=== PATIENT | male | born 2000 | race Caucasian/White ===

== ENCOUNTER 2020-09-16 23:34 | Emergency (ER) | payer SELFPAY ==
--- NOTE | 2020-09-17 00:25 | ER ---
DATE SEEN: 09/16/2020 CHIEF COMPLAINT: Numbness of the left hand. HISTORY OF PRESENT ILLNESS: This 19-year-old is complaining of numbness of the left hand, especially the pinky and ring finger that started last night when he woke up at around 2100. No weakness. He denies any headaches, neck pain, or any other neurologic symptoms. PAST MEDICAL HISTORY: No active medical problems. SOCIAL HISTORY: Currently unemployed. PHYSICAL EXAMINATION: VITAL SIGNS: Pulse is 114, the rest of the vital signs are normal. MUSCULOSKELETAL: Normal. NEUROLOGIC: Normal with grossly intact cranial nerves and strength in all four extremities. IMPRESSION: Carpal tunnel syndrome. TREATMENT: Nocturnal bracing for 2 weeks. Information provided. Follow up [email or web address] /[id number] ANDRE/NOE
== END 2020-09-17 00:09 | disposition home or self-care (01) ==
LOC: FB.ED 23:34
DX: G56.02 Carpal tunnel syndrome, left upper limb (principal)
CPT/HCPCS: 99283

== ENCOUNTER 2021-01-23 20:43 | Emergency (ER) | payer BC ==
[2021-01-23] MEDS ORDERED: Lidocaine 2% Viscous Solution 15 ML Cup PO ONE (20:52)
--- NOTE | 2021-01-23 21:22 | EDM.PDOC ---
ED HPI GENERAL MEDICAL PROBLEM - General Chief Complaint: General Stated Complaint: MOUTH INFECTION Time Seen by Provider: 01/23/21 21:00 Source of Information: Reports: Patient History Limitations: Reports: No Limitations - History of Present Illness INITIAL COMMENTS - FREE TEXT/NARRATIVE: Dental pain for 1 day getting worse. Pain is 8/10, Left upper jaw area. 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 Left Upper Tooth/Teeth Pain Score (Numeric/FACES): 6 - Related Data Allergies Allergy/AdvReac Type Severity Reaction Status Date / Time No Known Allergies Allergy Verified 09/16/20 23:48 Home Meds: Home Meds Amoxicillin 875 mg PO BID #20 tablet 01/23/21 [Rx] Past Medical History - Past Health History Medical/Surgical History: Denies Medical/Surgical History Social & Family History - Caffeine Use Caffeine Use: Reports: Coffee, Soda - Recreational Drug Use Recreational Drug Use: Yes Drug Use in Last 12 Months: Yes Recreational Drug Type: Reports: Marijuana/Hashish ED ROS GENERAL - Review of Systems Review Of Systems: See Below Constitutional: Reports: No Symptoms HEENT: Reports: Dental Pain Respiratory: Reports: No Symptoms Cardiovascular: Reports: No Symptoms Endocrine: Reports: No Symptoms GI/Abdominal: Reports: No Symptoms : Reports: No Symptoms Musculoskeletal: Reports: No Symptoms Skin: Reports: No Symptoms Neurological: Reports: No Symptoms Psychiatric: Reports: No Symptoms ED EXAM, GENERAL - Physical Exam Exam: See Below Exam Limited By: No Limitations General Appearance: Alert, No Apparent Distress Eye Exam: Bilateral Eye: PERRL Ears: Normal External Exam, Normal Canal Nose: Normal Inspection, Normal Mucosa Throat/Mouth: Normal Inspection, Normal Lips, Inflammation, Other (dental caries) Neck: Normal Inspection, Supple, Non-Tender Respiratory/Chest: No Respiratory Distress, Lungs Clear, Normal Breath Sounds, No Accessory Muscle Use, Chest Non-Tender Cardiovascular: Normal Peripheral Pulses, Regular Rate, Rhythm, No Edema, No Gallop, No JVD, No Murmur GI/Abdominal: Normal Bowel Sounds, Soft, Non-Tender, No Organomegaly Back Exam: Normal Inspection, Full Range of Motion Extremities: Normal Inspection, Normal Range of Motion, Non-Tender Neurological: Alert, Oriented, CN II-XII Intact, Normal Cognition Course - Vital Signs Text/Narrative:: Augmentin 875 mg PO x1 Ibuprofen 800 mg PO x1 Tylenol 1000 mg PO x1 Viscous Lidocaine applied by me Last Recorded V/S: Last Vital Signs Temp 37.3 C 01/23/21 20:53 Pulse 88 01/23/21 20:53 Resp 18 01/23/21 20:53 BP 122/88 01/23/21 20:53 Pulse Ox 99 01/23/21 20:53 - Orders/Labs/Meds Meds: Medications Discontinued Medications Generic Name Dose Route Start Last Admin Trade Name Flor PRN Reason Stop Dose Admin Acetaminophen 1,000 mg 01/23/21 21:24 01/23/21 21:29 Acetaminophen 500 Mg Tab PO 01/23/21 21:25 1,000 mg NOW STA Administration Amoxicillin/Clavulanate Potassium 1 tab 01/23/21 21:24 01/23/21 21:29 Amoxicillin/Clavulanate K 875-125 Mg Tab PO 01/23/21 21:25 1 tab NOW STA Administration Ibuprofen 800 mg 01/23/21 21:24 01/23/21 21:29 Ibuprofen 800 Mg Tab PO 01/23/21 21:25 800 mg NOW STA Administration Lidocaine HCl 15 ml 01/23/21 20:52 01/23/21 21:27 Lidocaine 2% Viscous Solution 15 Ml Cup PO 01/23/21 20:53 15 ml ONETIME ONE Administration Departure - Departure Time of Disposition: 21:25 Disposition: Home, Self-Care 01 Condition: Good Clinical Impression: Pain, dental, Gingivitis - Discharge Information Prescriptions: Amoxicillin 875 mg PO BID #20 tablet Instructions: Dental Pain Referrals: PCP,None [Primary Care Provider] - Forms: ED Department Discharge Additional Instructions: Please read discharge instructions on dental pain Ibuprofen 800 mg with tylenol 1000 mg every 8 hours as needed for pain Follow up with your dentist this week Sepsis Event Note (ED) - Evaluation Sepsis Screening Result: No Definite Risk
[2021-01-23] MEDS ORDERED: Ibuprofen 800 MG Tab PO STA (21:24)
[2021-01-23] MEDS ORDERED: Amoxicillin/Clavulanate K 875-125 MG Tab PO STA (21:24)
[2021-01-23] MEDS ORDERED: Acetaminophen 500 MG Tab PO STA (21:24)
== END 2021-01-23 21:40 | disposition home or self-care (01) ==
LOC: FB.ED 20:43
DX: K05.10 Chronic gingivitis, plaque induced (principal); K08.89 Other specified disorders of teeth and supporting structures
CPT/HCPCS: 99282; A9270